=== PATIENT | male | born 1990 | race Caucasian/White ===

== ENCOUNTER → 2020-12-13 | Emergency (ER) | payer BC ==
[~2020-12-13] MED LIST: LORazepam 2 MG/ML VIAL ONE; NA CHLORIDE 0.9% 0 ML ONE; PANTOPRAZOLE 40 MG INJ ONE; PROMETHAZINE INJ 25 MG/ML AMP ONE
--- OUTSIDE RECORDS SUMMARY | 2020-12-13 22:13 | XMS REPORT | Continuity of Care Document ---
:1990 Author Organization [facility] t Address [address] [place] [address] Care Team Providers Name Role Phone Unavailable Unavailable Unavailable Problems This patient has no known problems. Allergies, Adverse Reactions, Alerts This patient has no known allergies or adverse reactions. Social History Smoking Status Start Date Stop Date Source Never Smoker [facility] Medications This patient has no known medications. Vital Signs Vital Name Observation Time Observation Value Comments Source Height 2019-06-24 00:00:00 71 [in_i] [facility] BMI (Body Mass 2019-06-24 00:00:00 21.7 kg/m2 [facility]) Group BP Systolic 2019-06-24 00:00:00 112 mm[Hg] [facility] Body Weight 2019-06-24 00:00:00 155.9 [lb_av] [facility] BP Diastolic 2019-06-24 00:00:00 71 mm[Hg] [facility] Procedures This patient has no known procedures. Plan of Care Planned Activity Planned Date Details Comments Source Instructions [facility] Encounters Start End Encounter Admission Attending Care Care Encounter Source Date/Time Date/Time Type Type Clinicians Facility Department ID 2019-06-24 2019-06-24 Michael ROCHA [place] - [id number] [facility] 00:00:00 00:00:00 MD Duane: [address] Group [facility] - [address], Otolaryngol [facility] [address] , Ph. Results This patient has no known results.
== END ==
LOC: ER 22:05
DX: Z02.9 Encounter for administrative examinations, unspecified (principal)

== ENCOUNTER 2022-07-20 15:06 | Emergency (ER) | payer BC, OTHER ==
--- OUTSIDE RECORDS SUMMARY | 2022-07-20 15:09 | XMS REPORT | Continuity of Care Document ---
:1990 Author Organization [facility] t Address [address] [place] [address] Care Team Providers Name Role Phone Dinesh_S Attending Clinician Unavailable MARY KAY BROWN Attending Clinician Unavailable Duane_P Attending Clinician Unavailable Zuniga_S Admitting Clinician Unavailable MARY KAY BROWN Admitting Clinician Unavailable Flaviou_P Admitting Clinician Unavailable Payers Payer Name Policy Type Policy Number Effective Date Expiration Date cathy [facility] [id number] 2022 COMMUNITY PLAN 00:00:00 (MEDICAID REPLACEMENT - HMO) Problems Condition Condition Condition Status Onset Resolution Last Treating Co mments Source Name Details Category Date Date Treatment Clinician Date Headache Headache Problem Active [facility] 04[facility]07 [facility]:00: [facility] 00 Group Bloating Bloating Problem Active [facility] symptom Symptom 04-07 00:00: Medical 00 Group Adult Adult Problem Active [facility] 04-07 examinatio Examinatio 00:00: Me dical n n 00 Group Acute Acute Problem Active [facility] pharyngiti Pharyngiti 04-07 s s 00:00: Medical 00 Group Allergies, Adverse Reactions, Alerts This patient has no known allergies or adverse reactions. Social History Smoking Status Start Date Stop Date Source Current Some Day Smoker [facility] Medications Ordered Filled Start Stop Current Ordering Indication Dosage Frequency Signature Comments Components Source Medication Medication Date Date Medication? Clinician (SIG) Name Name buprenorphi buprenorphi No buprenorph [facility] ne 8 ne 8 ine 8 da mg-naloxone mg-naloxone mg-naloxon Medical 2 mg 2 mg e 2 mg Group sublingual sublingual sublingual film TAKE 1 film TAKE 1 film TAKE FILM BY FILM BY 1 FILM BY MOUTH ON MOUTH ON MOUTH ON THE TONGUE THE TONGUE THE TONGUE TWICE DAILY TWICE DAILY TWICE DAILY doxycycline doxycycline No 1 BID doxycyclin [facility] hyclate 100 hyclate 100 e hyclate da mg tablet mg tablet 100 mg Med ical Take 1 Take 1 tablet Group tablet tablet Take 1 twice a day twice a day tablet by oral by oral twice a route for route for day by 10 days. 10 days. oral route for 10 days. prednisone prednisone No 1 Q1D prednisone [facility] 10 mg 10 mg 10 mg da tablet Take tablet Take tablet Medical 1 tablet 1 tablet Take 1 Group every day every day tablet by oral by oral every day route for 5 route for 5 by oral days. days. route for 5 days. Vital Signs Vital Name Observation Time Observation Value Comments Source BP Diastolic 2022-04-07 00:00:00 74 mm[Hg] [facility] Height 2022-04-07 00:00:00 71 [in_i] [facility] BMI (Body Mass 2022-04-07 00:00:00 24.7 kg/m2 [facility] Medical Index) Group BP Systolic 2022-04-07 00:00:00 128 mm[Hg] [facility] Body Weight 2022-04-07 00:00:00 2833 [oz_av] [facility] BP Diastolic 2019-06-24 00:00:00 71 mm[Hg] [facility] Height 2019-06-24 00:00:00 71 [in_i] [facility] BMI (Body Mass 2019-06-24 00:00:00 21.7 kg/m2 [facility] Medical Index) Group BP Systolic 2019-06-24 00:00:00 112 mm[Hg] [facility] Body Weight 2019-06-24 00:00:00 155.9 [lb_av] [facility] Procedures This patient has no known procedures. Plan of Care Planned Activity Planned Date Details Comments Source Diagnostic Test 2022-05-16 [facility] Pending 00:00:00 A, throat [code = Group rapid strep group A, throat] Diagnostic Test 2022-04-07 H pylori urea [place] [facility] Pending 00:00:00 breath test, co2 Group infrared [code = H pylori urea breath test, co2 infrared] Diagnostic Test 2022-04-07 CBC w/ auto diff [facility] Pending 00:00:00 [code = CBC w/ Group auto diff] Diagnostic Test 2022-04-07 CMP, serum or [place] Pending 00:00:00 plasma [code = Group CMP, serum or plasma] Diagnostic Test 2022-04-07 lipid panel, serum [facility] Pending 00:00:00 [code = lipid Group panel, serum] Diagnostic Test 2022-04-07 HbA1c (hemoglobin [facility] Pending 00:00:00 A1c), blood [code Group = HbA1c (hemoglobin A1c), blood] Diagnostic Test 2022-04-07 TSH, serum or [place] [facility] Pending 00:00:00 plasma [code = Group TSH, serum or plasma] Diagnostic Test 2022-04-07 urinalysis, [place] [facility] Pending 00:00:00 complete [code = Group urinalysis, complete] Instructions [facility] Encounters Start End Encounter Admission Attending Care Care Encounter Source Date/Time Date/Time Type Type Clinicians Facility Department ID 2022-04-07 2022-04-07 Outpatient Zuniga_S [facility] [id number] [facility] 03:35:00 03:35:00 0620 [facility] 2022-04-07 2022-04-07 Outpatient Zuniga_S [facility] [id number] [facility] 03:35:00 03:35:00 0617 [facility] 2022-04-07 2022-04-07 Amina [facility] [place] - [id number] [facility] 00:00:00 00:00:00 Discovery dionisio Montiel MEAT CARVER-C: [address] [place], [place] [address]a - [address], [place] [address] , Ph. 2021-03-05 2021-03-05 Emergency E MARY KAY BROWN [facility] [address] [facility] 03:00:00 07:06:00 2020-09-08 2020-09-08 Out[facility] [id number] [facility] 02:21:00 02:21:00 1118 [facility] 2019-06-24 2019-06-24 Paliv[facility] [place] - [id number] [facility] 00:00:00 00:00:00 MD Duane: Discovery nichole [address] [facility], [place] - [address], Otolaryngol [place], [place] [address] , Ph. Results Test Description Test Time Test Comments Results Result Comments Source rapid strep group A, throat 2022-04-07 03:15:00 Test Item Value Reference Range Interpretation Comme nts Strep Result (test code = Strep Result) negative [facility]
[2022-07-20] MEDS ORDERED: IBUPROFEN 400 MG TAB ONE (15:35)
[2022-07-20] MEDS ORDERED: TETANUS & DIPHTHERIA TOX,ADULT 0.5 ML VIAL ONE (15:35)
[2022-07-20] MEDS ORDERED: LIDOCAINE 1% W/EPI 1:100,000 10 ML VIAL ONE (15:35)
--- NOTE | 2022-07-20 16:20 | RAD REPORT ---
EXAM DESCRIPTION: RAD - Hand Left 3 View - 07/20/2022 4:06 pm CLINICAL HISTORY: laceration COMPARISON: None. FINDINGS: No fracture, dislocation or periosteal reaction noted. No acute or destructive bone proces s. Film notation indicates laceration on the radial side near the second MCP joint. No air or foreign body in the soft tissues. IMPRESSION: No left hand acute bone or joint finding. No foreign body in the soft tissues.
--- NOTE | 2022-07-20 16:56 | ER ---
Nurse's Notes 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 Pt is mildly bleeding through napkins, however it's not saturated and is controlled. Coronavirus screen: Vaccine status: Patient reports being unvaccinated. Client denies travel out of the [place] in the last 14 days. Ebola Screen: Patient negative for fever greater than or equal to 101.5 degrees Fahrenheit, and additional compatible Ebola Virus Disease symptoms Patient denies exposure to infectious person. Patient denies travel to an Ebola-affected area in the 21 days before illness onset. Initial Sepsis Screen: Does the patient meet any 2 criteria? No. Patient's initial sepsis screen is negative. Does the patient have a suspected source of infection? No. Patient's initial sepsis screen is negative. Risk Assessment: Do you want to hurt yourself or someone else? Patient reports no desire to harm self or others. Onset of symptoms was July 20, 2022. 15:13 Method Of Arrival: Ambulatory [facility] 15:13 Acuity: KATERYNA 3 5 Triage Assessment: 15:14 General: Appears in no apparent distress. uncomfortable, slender, Behavior is calm, 5 cooperative, appropriate for age. Pain: Complains of pain in left hand. Historical: - Allergies: 15:14 No Known Allergies; [facility] - Home Meds: 15:14 None [Active]; [facility] - PMHx: 15:14 None; [facility] - Immunization history:: Adult Immunizations up to date. - Social history:: Smoking status: Patient reports the use of cigarette tobacco products, denies chronic smoking, but will smoke occasionally. Screenin:25 Abuse screen: Denies threats or abuse. Denies injuries from another. Nutritional kb3 screening: No deficits noted. Tuberculosis screening: No symptoms or risk factors identified. Fall Risk None identified. Assessment: 15:15 General: Appears in no apparent distress. Behavior is calm, cooperative, Received care kb3 of pt from triage. AAO x4. 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 Pt holding pressure to wound, bleeding is controlled. 15:25 General: Salvatore and Pawel WATSON Techs at bedside to hold pressure to wound. Pt removed gauze kb3 for spouse to take a picture of wound and wound began bleeding moderately. . 16:15 General: Manuelito Urias PA at bedside to repair laceration. kb3 17:15 General: Splint applied to left index finger as ordered by Manuelito urias and wound dressed kb3 with gauze, kerlix, and mk wrap. Instructions for wound care provided to pt and spouse at bedside.. Vital Signs: 15:13 BP 154 / 90; Pulse 59; Resp 18; Temp 98.6; Pulse Ox 98% ; Weight 81.65 kg; Height 6 ft. jh5 0 in. (182.88 cm); Pain 7/10; 17:15 BP 140 / 78; Pulse 62; Resp 18; Pulse Ox 99% ; kb3 15:13 Body Mass Index 24.41 (81.65 kg, 182.88 cm) 5 ED Course: 15:07 Patient arrived in ED. rg4 15:09 Manuelito Urias PA is PHCP. cp 15:09 Christopher Mcconnell MD is Attending Physician. cp 15:14 Triage completed. 5 15:14 Arm band placed on right wrist. 5 15:16 Heather Hightower, RN is Primary Nurse. kb3 15:25 Patient has correct armband on for positive identification. Bed in low position. Call kb3 light in reach. 15:25 Lac repair tray, lidocaine w/epi as ordered and gloves at bedside. Patient did not have kb3 IV access during this emergency room visit. 15:30 Dressings: Kerlix X 1; left hand 4X4s X 1; left hand 2" mk wrap to left hand. Wound kb3 care: to laceration located on lateral aspect of left hand was cleaned with Hibiclens, Patient tolerated well. 16:08 Hand Left 3 View In Process Unspecified. EDMS Administered Medications: 15:29 CANCELLED (Physician Discretion): Lidocaine (1 %) 5 ml 20 ml Infiltration once; to cp bedside 15:40 Drug: Ibuprofen 800 mg Route: PO; kb3 16:30 Follow up: Response: No adverse reaction; Pain is decreased kb3 15:45 Drug: Tetanus-Diphtheria Toxoid Adult 0.5 ml {Bunch Maker: [employer]. Exp: kb3 02/25/2024. Lot #: [id number]. } {Note: Given by Nat HUERTA student records specialist with Bernard OLIVAS oberving.} Route: IM; Site: right deltoid; 16:30 Follow up: Response: No adverse reaction kb3 16:15 Drug: Lidocaine-Epinephrine -1%: (1:100,000) 10 ml Volume: 20 ml; Route: Infiltration; kb3 Site: affected area; 17:15 Follow up: Response: No adverse reaction kb3 Medication: 15:25 Vaccine Information Statement (VIS) provided today. Questions and/or concerns kb3 addressed. VIS edition date: May 27, 2021. Outcome: 16:55 Discharge ordered by MD. cp 17:33 Discharged to home ambulatory, with family. kb3 17:33 Condition: stable 17:33 Discharge instructions given to patient, Instructed on discharge instructions, follow up and referral plans. medication usage, wound care, Demonstrated understanding of instructions, follow-up care, medications, wound care, Prescriptions given X 1. 17:33 Patient left the ED. kb3 Signatures: Dispatcher [employer] EDMS Manuelito Urias PA PA cp Doretha Moore rg4 Rose Gr RN RN 5 Heather Hightower RN RN kb3 Corrections: (The following items were deleted from the chart) 15:15 15:14 PMHx: Unable to Obtain; [place] [id number] 15:52 15:20 General: Salvatore and Pawel WATSON Techs at bedside to hold pressure to wound. . kb3 kb3
--- NOTE | 2022-07-20 16:56 | EDPHYS ---
Physician Documentation [facility] Name: Mesfin Yu Age: 32 yrs Sex: Male : 1990 Arrival Date: 07/20/2022 Time: 15:07 Bed 11 Private MD: ED Physician Christopher Mcconnell HPI: 07/20 15:25 This 32 yrs old Male presents to ER via Ambulatory with complaints of Finger cp Laceration. 15:25 The patient or guardian reports a laceration. cp 15:25 The complaints affect the radial side proximal phalanx left index finger. Context: cp resulted from use of metallic blade. Onset: The symptoms/episode began/occurred just prior to arrival. Associated signs and symptoms: The patient has no apparent associated signs or symptoms. Severity of symptoms: in the emergency department the symptoms bleeding controlled. Historical: - Allergies: 15:14 No Known Allergies; [facility] - Home Meds: 15:14 None [Active]; [facility] - PMHx: 15:14 None; [facility] - Immunization history:: Adult Immunizations up to date. - Social history:: Smoking status: Patient reports the use of cigarette tobacco products, denies chronic smoking, but will smoke occasionally. ROS: 15:30 Constitutional: Negative for body aches, chills, fever. cp 15:30 Cardiovascular: Negative for chest pain. cp 15:30 Respiratory: Negative for cough, wheezing. 15:30 Abdomen/GI: Negative for abdominal pain, vomiting, diarrhea, constipation. 15:30 Skin: Positive for laceration(s), of the radial side proximal phalanx left index finger. 15:30 Neuro: Negative for numbness, tingling. 15:30 All other systems are negative. Exam: 15:33 Constitutional: The patient appears in no acute distress, alert, awake, comfortable, cp non-toxic, well developed, well nourished. 15:33 Head/Face: Normocephalic, atraumatic. cp 15:33 Cardiovascular: Rate: normal, Rhythm: regular. 15:33 Respiratory: the patient does not display signs of respiratory distress, Respirations: normal, no use of accessory muscles, no retractions, labored breathing, is not present, Breath sounds: are clear throughout. 15:33 Abdomen/GI: Exam negative for discomfort, distension, guarding, Inspection: abdomen appears normal. 15:33 Musculoskeletal/extremity: Extremities: grossly normal except: noted in the left index finger: laceration, swelling, tenderness, There is no evidence of decreased ROM, ROM: full active range of motion, in the left index finger, Perfusion: the extremity is normally perfused throughout, with brisk capillary refill, the left index finger neuro-vascular intact Tendon exam: specific tendon testing normal through active and passive range of motion Vital Signs: 15:13 BP 154 / 90; Pulse 59; Resp 18; Temp 98.6; Pulse Ox 98% ; Weight 81.65 kg; Height 6 ft. jh5 0 in. (182.88 cm); Pain 7/10; 17:15 BP 140 / 78; Pulse 62; Resp 18; Pulse Ox 99% ; kb3 15:13 Body Mass Index 24.41 (81.65 kg, 182.88 cm) jh5 Laceration: 16:52 Wound Repair of 2cm ( 0.8in ) subcutaneous laceration to radial side of proximal cp phalanx left index finger. Linear shaped.. Distal neuro/vascular/tendon intact. Anesthesia: Wound infiltrated with 4 mls of 1% lidocaine w/ Epi. Wound prep: Moderate cleansing by me, Wound irrigation by me. Skin closed with 3 4-0 Prolene using interrupted sutures and sterile technique. Dressed with Bacitracin, finger splint. Patient tolerated well. MDM: 15:12 Patient medically screened. 16:15 Test interpretation: by ED physician or midlevel provider: xrays of left hand negative cp for fracture. 16:55 Data reviewed: vital signs, nurses notes, radiologic studies, plain films. cp 16:55 Counseling: I had a detailed discussion with the patient and/or guardian regarding: the cp historical points, exam findings, and any diagnostic results supporting the discharge/admit diagnosis, radiology results, the need for outpatient follow up, a family practitioner, to return to the emergency department if symptoms worsen or persist or if there are any questions or concerns that arise at home. Response to treatment: the patient's symptoms have markedly improved after treatment, and as a result, I will discharge patient. 07/20 16:08 Order name: Hand Left 3 View; Complete Time: 16:21 EDMS 07/20 16:21 Interpretation: Report reviewed. 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 Exp: kb3 02/25/2024. Lot #: [id number]. } {Note: Given by Nat HUERTA chief nursing executive with Bernard OLIVAS oberving.} Route: IM; Site: right deltoid; 16:30 Follow up: Response: No adverse reaction kb3 16:15 Drug: Lidocaine-Epinephrine -1%: (1:100,000) 10 ml Volume: 20 ml; Route: Infiltration; kb3 Site: affected area; 17:15 Follow up: Response: No adverse reaction kb3 Disposition: 18:29 PA/MANAGER BEHAVIOR's history reviewed, patient interviewed, and examined. I agree with assessment jr11 and care plan and confirm the diagnosis (es) above. Attestation: The patient's history, exam findings, diagnostics, and a summary of any interventions or procedures was reviewed in detail with Manuelito BEAL. Disposition Summary: 07/20/22 16:55 Discharge Ordered Location: Home cp Problem: new cp Symptoms: have improved cp Condition: Stable cp Diagnosis - Laceration without foreign body of left index finger without damage to nail cp Followup: cp - With: Private Physician - When: 10 - 14 days - Reason: Staple/Suture removal Discharge Instructions: - Discharge Summary Sheet cp - Laceration Care, Adult cp Forms: - Medication Reconciliation Form cp - Thank You Letter cp - Antibiotic Education cp - Prescription Opioid Use cp - Work release form kb3 Prescriptions: - Cephalexin 500 mg Oral Capsule - take 1 capsule by ORAL route every 8 hours for 10 days; 30 capsule; Refills: 0, cp Product Selection Permitted Signatures: Dispatcher [employer] EDRI Manuelito Urias PA PA Rose Portillo, RN RN jh5 Christopher Mcconnell MD MD jr11 Heather Hightower, RN RN kb3 Corrections: (The following items were deleted from the chart) 15:15 15:14 PMHx: Unable to Obtain; [place] [id number] 15:29 15:19 Lidocaine (1 %) 5 ml 20 ml Infiltration once; to bedside ordered. tez reagan 16:08 15:19 Finger-Thumb Left+.RAD.RAD.BRZ ordered. EDMS EDMS
[2022-07-21 20:23] VITALS: TEMP 98.6
[2022-07-21 20:25] VITALS: BP 140/78; O2SAT 99
== END 2022-07-20 17:33 | disposition home or self-care (01) ==
LOC: ER 15:06
PROC: 0JQK0ZZ Repair Left Hand Subcutaneous Tissue and Fascia, Open Approach (ICD-10-PCS; principal; 2022-07-20)
DX: S61.211A Laceration without foreign body of left index finger without damage to nail, initial encounter (principal); F17.210 Nicotine dependence, cigarettes, uncomplicated; Z23 Encounter for immunization
CPT/HCPCS: 90471; 90714; 99284